=== PATIENT | male | born 1950 ===

== ENCOUNTER 2016-12-01 17:21 | Emergency (ER) | payer BC, MEDICARE ==
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
--- NOTE | 2016-12-01 18:50 | RAD ---
HISTORY: Pain and swelling of the right greater trochanter COMPARISONS: None VIEWS: 3, Frontal view of the pelvis with frontal and frog-leg views of the right hip FINDINGS: BONE DENSITY: Normal. BONES: There is no displaced fracture. JOINTS: There is mild osteoarthritis of the hips and SI joints ALIGNMENT: There is no dislocation. SOFT TISSUES: There is soft tissue calcification along the greater trochanter of the right femur OTHER FINDINGS: Degenerative changes are noted of the spine IMPRESSION: 1. MILD OSTEOARTHRITIS. 2. SOFT TISSUE CALCIFICATION OF THE RIGHT GREATER TROCHANTER SUGGESTIVE OF A CALCIFIC TENDINOPATHY. 3. NO ACUTE OSSEOUS INJURY. IF SYMPTOMS PERSIST, RECOMMEND REPEAT IMAGING
[2016-12-01] MEDS ORDERED: Naproxen TAB* 250 MG PO ONE (19:27)
== END 2016-12-01 20:11 | disposition home or self-care (01) ==
LOC: UCEAST 17:21
DX: M70.61 Trochanteric bursitis, right hip (principal); Y93.89 Activity, other specified; Z88.7 Allergy status to serum and vaccine
CPT/HCPCS: 99202; A9270-GY; G0463

== ENCOUNTER 2018-08-10 11:23 | Emergency (ER) | payer BC, MEDICARE ==
--- NOTE | 2018-08-10 12:27 | ED ---
HPI Chest Pain - HPI Summary HPI Summary: A 68 y/o male presents to [facility] with a chief complaint Chest Pain since the morning of 08/08/18. The patient reports a mechanical fall the morning of . He also reports back pain and states that movement aggravates his pain. The patient claims that he felt fine after the fall. In the ED however, he ranks his pain as a constant 7/10. - History of Current Complaint Chief Complaint: EDChestWallPain Time Seen by Provider: 08/10/18 12:07 Hx Obtained From: Patient Onset/Duration: Started Days Ago, Still Present Timing: Constant Initial Severity: Moderate Current Severity: Moderate Pain Intensity: 7 Pain Scale Used: 0-10 Numeric Chest Pain Location: Left Lateral Chest Pain Radiates: Yes Chest Pain Radiates To:: Back Aggravating Factor(s): Movement Alleviating Factor(s): Nothing Associated Signs and Symptoms: Positive: Back Pain - Allergy/Home Medications Allergies/Adverse Reactions: Allergies Allergy/AdvReac Type Severity Reaction Status Date / Time Tetanus Vaccines and Toxoid Allergy Fever Verified 08/10/18 12:20 PMH/Surg Hx/FS Hx/Imm Hx Endocrine/Hematology History: Denies: Hx Diabetes Cardiovascular History: Denies: Hx Coronary Artery Disease, Hx Hypertension Sensory History: Denies: Hx Deafness Infectious Disease History: No Infectious Disease History: Denies: Traveled Outside the [place] in Last 30 Days - Family History Known Family History: Positive: Hypertension, Diabetes - Social History Alcohol Use: Rare Substance Use Type: Reports: None Smoking Status (MU): Never Smoked Tobacco Review of Systems Positive: Chest Pain Positive: Myalgia - back pain All Other Systems Reviewed And Are Negative: Yes Physical Exam - Summary Physical Exam Summary: Appearance: The patient is well-nourished in no acute distress and in no acute pain. Skin: The skin is warm and dry and skin color reflects adequate perfusion. HEENT: The head is normocephalic and atraumatic. The pupils are equal and reactive. The conjunctivae are clear and without drainage. Nares are patent and without drainage. Mouth reveals moist mucous membranes and the throat is without erythema and exudate. The external ears are intact. The ear canals are patent and without drainage. The tympanic membranes are intact. Neck: The neck is supple with full range of motion and non-tender. There are no carotid bruits. There is no neck vein distension. Respiratory: Tender in left lateral chest wall. Lungs are clear to auscultation and breath sounds are symmetrical and equal. Cardiovascular: Heart is regular rate and rhythm. There is no murmur or rub auscultated. There is no peripheral edema and pulses are symmetrical and equal. Abdomen: The abdomen is soft and non-tender. There are normal bowel sounds heard in all four quadrants and there is no organomegaly palpated. Musculoskeletal: There is no back tenderness noted. Extremities are non-tender with full range of motion. There is good capillary refill. There is no peripheral edema or calf tenderness elicited. Neurological: Patient is alert and oriented to person, place and time. The patient has symmetrical motor strength in all four extremities. Cranial nerves are grossly intact. Deep tendon reflexes are symmetrical and equal in all four extremities. Psychiatric: The patient has an appropriate affect and does not exhibit any anxiety or depression. Triage Information Reviewed: Yes Vital Signs On Initial Exam: Initial Vitals Temp Pulse Resp BP Pulse Ox 98.6 F 76 18 167/90 98 08/10/18 11:31 08/10/18 11:31 08/10/18 11:31 08/10/18 11:31 08/10/18 11:31 Vital Signs Reviewed: Yes Diagnostics - Vital Signs Vital Signs Temp Pulse Resp BP Pulse Ox 08/10/18 11:31 98.6 F 76 18 167/90 98 - Laboratory Lab Statement: Any lab studies that have been ordered have been reviewed, and results considered in the medical decision making process. - Radiology CXR Radiology Interpretation Completed By: Radiologist Summary of Radiographic Findings: NO EVIDENCE FOR ACTIVE CARDIOPULMONARY DISEASE. ED physician has reviewed this imaging report. Chest Pain Course/Dx - Course Course Of Treatment: Mr. Ann presented with left-sided chest pain exacerbated by movement and deep breath after falling on Tuesday. The pain got significantly worse quickly on Tuesday morning. On exam is tender in the left lateral lower chest wall. Lung sounds are clear. Chest x-ray showed no acute pathology. He is either bruised or as a nondisplaced fracture and I will treat him with pain medications and recommend nonsteroidals and follow-up. - Diagnoses Provider Diagnoses: Chest wall pain, Rib injury Discharge - Sign-Out/Discharge Documenting (check all that apply): Patient Departure - DC - Discharge Plan Condition: Stable Disposition: HOME Prescriptions: traMADol TAB* [Ultram*] 50 mg PO Q6HR PRN #20 tab MDD 4 PRN Reason: Pain Patient Education Materials: Chest Wall Pain (ED) Referrals: [facility] [place] [facility] [Outside] (2-3 days) Additional Instructions: [facility] [id number] [place] [address] Thursday August 16, 2018 @ 11:00 am Follow up with your PCP in 2-3 days. Return to the ED if you experience any new or worsening pain. - Billing Disposition and Condition Condition: STABLE Disposition: Home - Attestation Statements Document Initiated by Scribe: Yes Documenting Scribe: Blaze Avery Provider For Whom Scribe is Documenting (Include Credential): Arnoldo Rae MD Scribe Attestation: Blaze Finney scribed for Arnoldo Rae MD on 08/10/18 at 1419. Scribe Documentation Reviewed: Yes Provider Attestation: The documentation as recorded by the Blaze nolen accurately reflects the service I personally performed and the decisions made by Arnoldo silveira MD Status of Scribe Document: Viewed
[2018-08-10 14:53] VITALS: BP 166/106
== END 2018-08-10 14:32 | disposition home or self-care (01) ==
LOC: ED 11:23
DX: R07.89 Other chest pain (principal); S29.9XXA Unspecified injury of thorax, initial encounter; W19.XXXA Unspecified fall, initial encounter; Y92.9 Unspecified place or not applicable; Z88.7 Allergy status to serum and vaccine
CPT/HCPCS: 71046; 99282